=== PATIENT | female | born 2000 | race Two or more races ===

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

== ENCOUNTER 2019-07-22 21:35 | Emergency (ER) | payer SELFPAY ==
[~2019-07-22] VITALS: Ht 160 cm; Wt 47.5 kg
[~2019-07-22 21:35] MED LIST: ACET-1757 PO; IBUP-1222 PO; ONDA4TAB7 PO; PREN1TAB10 PO
[2019-07-22] MEDS ORDERED: KETOROLAC 30 MG/1 ML IM ONE (22:00)
[2019-07-22] MEDS ORDERED: PROCHLORPERAZINE 10MG TABLET PO ONE (22:00)
[2019-07-22] MEDS ORDERED: ACETAMINOPHEN 500 MG TABLET PO ONE (22:00)
[2019-07-22] MEDS ORDERED: KETOROLAC 30 MG/1 ML ONE (22:53)
[2019-07-22] MEDS ORDERED: PROCHLORPERAZINE 10MG TABLET ONE (22:53)
[2019-07-22] MEDS ORDERED: ACETAMINOPHEN 500 MG TABLET ONE (22:53)
--- NOTE | 2019-07-22 23:11 | NUR ---
PT REPOSITIONED ON GURNEY FOR COMFORT. MEDICATED ORDERED. FAMILY MEMBER AND INFANT SON AT BEDSIDE. PT CURRENTLY DENIES C/O SHORTNESS OF BREATH AT THIS TIME. REVIEWED POC W/ PT INCLUDING MEDICATIONS, DENIED QUESTIONS/CONCERNS.
--- NOTE | 2019-07-22 23:16 | NUR ---
PT REPORTS IS FEELING BETTER AFTER RECEIVING MEDICATIONS, DENIES C/O CP AT THIS TIME. AWARE OF PENDING DISCHARGE.
[2019-07-22 23:27] VITALS: BP 111/74
--- NOTE | 2019-07-22 23:28 | NUR ---
REVIEWED DISCHARGE INSTRUCTIONS W/ PT AND FAMILY MEMBER, VERBALIZED UNDERSTANDING TO INFORMATION PROVIDED INCLUDING FOLLOW UP CARE AND RETURN PRECAUTIONS, DENIED QUESTIONS/CONCERNS. REVIEWED OTC MEDICATIONS AND INDICATIONS FOR USE, DENIED QUESTIONS/CONCERNS. PT AMBULATED FROM ED, DENIED C/O PAIN AT TIME OF DISCHARGE.
== END 2019-07-22 23:32 | disposition home or self-care (01) ==
LOC: ED 23:20
DX: R07.89 Other chest pain (principal); M54.2 Cervicalgia; R51 Headache
CPT/HCPCS: 71045; 93005; 96372; 99283; J1885; Q0164

== ENCOUNTER 2020-01-06 13:09 | Emergency (ER) | payer SELFPAY ==
[~2020-01-06] VITALS: Ht 160 cm; Wt 47.2 kg
[~2020-01-06 13:09] MED LIST changes: -ACET-1757 PO; +ACET-2065 PO
[2020-01-06 13:19] VITALS: BP 128/81
--- NOTE | 2020-01-06 13:57 | NUR ---
clinical research director note: Pt to room from lobby.
--- NOTE | 2020-01-06 14:00 | NUR ---
PT TO ROOM.
[2020-01-06 16:11] LABS: CLUE CELLS PRESENT (NONE SEEN); WET PREP WBCS MANY (FEW)
== END 2020-01-06 16:13 | disposition home or self-care (01) ==
LOC: ED 14:10
DX: N76.0 Acute vaginitis (principal)
CPT/HCPCS: 87210; 87491; 87591; 87808; 99283; 99284

== ENCOUNTER 2021-06-16 05:27 | Emergency (ER) | payer OTHER ==
[~2021-06-16] VITALS: Ht 160 cm; Wt 43.7 kg
--- NOTE | 2021-06-16 06:56 | NUR ---
ASSUMED CARE OF PT AT THIS TIME, PT UPRIGHT ON GURNEY AWAKE & CALM, RESPONDS APPROP TO STAFF, COMFOFRT MEASURES PROVIDED, CALL LIGHT WITHIN REACH.
[2021-06-16] MEDS ORDERED: MORPHINE SULFATE 4 MG/ML, 1ML IVPush PRN (07:00)
[2021-06-16] MEDS ORDERED: ONDANSETRON 2MG/ML, 2ML IVPush ONE (07:00)
[2021-06-16] MEDS ORDERED: SODIUM CHLORIDE FLUSH 10ML SYR IVF ONE (07:00)
[2021-06-16] MEDS ORDERED: ONDANSETRON 2MG/ML, 2ML ONE (07:02)
[2021-06-16] MEDS ORDERED: MORPHINE SULFATE 4 MG/ML, 1ML ONE (07:02)
[2021-06-16 07:42] LABS: BASOPHILS % (AUTO) 1 % (0-1); EOSINOPHILS % (AUTO) 1 % (1-7); LYMPHOCYTES % (AUTO) 21 % (22-44); MEAN CORPUSCULAR HEMOGLOBIN 30.2 pg (27.0-34.8); MEAN CORPUSCULAR HGB CONC 33.7 g/dL (32.4-35.8); MEAN PLATELET VOLUME 8.3 fL (7.4-10.4); MONOCYTES % (AUTO) 6 % (2-9); NEUTROPHILS % (AUTO) 72 % (42-75); PLATELET COUNT 359 x10^3/uL (130-400); RED BLOOD COUNT 4.88 x10^6/uL (3.82-5.3); RED CELL DISTRIBUTION WIDTH 13.3 % (9.6-15.2)
[2021-06-16 07:55] LABS: MICROSCOPIC INDICATED
[2021-06-16 07:57] LABS: ALBUMIN 4.1 g/dL (3.4-5.0); ANION GAP 8 mmol/L (5-15); CALCIUM 9.1 mg/dL (8.5-10.1); CHLORIDE 101 mmol/L (98-107)
--- NOTE | 2021-06-16 08:01 | NUR ---
PT REMAINS UPRIGHT ON GURNEY AWAKE & MORE COMFORTABLE AFTER PAIN MED, WATCHING TV, RESPONDS APPROP TO STAFF, NO NEEDS AT THIS TIME, CALL LIGHT WITHIN REACH.
[2021-06-16 08:03] LABS: ALKALINE PHOSPHATASE 64 U/L (45-117); TOTAL PROTEIN 8.4 g/dL (6.4-8.2)
[2021-06-16 08:11] LABS: ALANINE AMINOTRANSFERASE 14 U/L (12-78); BILIRUBIN,TOTAL 0.6 mg/dL (0.2-1.0)
--- NOTE | 2021-06-16 08:58 | NUR ---
PT UPRIGHT ON GURNEY AWAKE & COMFORTABLE, WATCHING TV, RESPONDS APPROP TO STAFF, COMFOFRT MEASURES PROVIDED, CALL LIGHT WITHIN REACH.
[2021-06-16] MEDS ORDERED: OMNIPAQUE 350 MG/ML, 100ML BOTTLE ONE (09:16)
--- NOTE | 2021-06-16 10:09 | NUR ---
Break Relief: waiting for ERP re-evaluate
[2021-06-16 11:00] VITALS: BP 93/69
--- NOTE | 2021-06-16 11:00 | NUR ---
PT REMAINS UPRIGHT ON RNEY AWAKE & COMFORTABLE, WATCHING TV, RESPONDS APPROP TO STAFF, COMFORT MEASURES PROVIDED, CALL LIGHT WITHIN REACH.
--- NOTE | 2021-06-16 11:58 | NUR ---
Patient given discharge instructions and they have confirmed that they understand the instructions. Patient ambulatory with steady gait. NAD, all questions answered appropriately, denies additional needs at this time. No personal belongings left in room after discharge.
== END 2021-06-16 11:59 | disposition home or self-care (01) ==
LOC: ED 06:00
DX: R10.31 Right lower quadrant pain (principal); R11.2 Nausea with vomiting, unspecified
CPT/HCPCS: 36415; 74177; 80053; 81001; 83690; 84703; 85025; 96374; 96375; 99285; J2270; J2405; Q9967